=== PATIENT | female | born 1955 | race Caucasian/White ===

== ENCOUNTER 2019-06-06 07:51 | Day surgery (SDC) | payer MEDICARE, SELFPAY ==
[2019-06-03 08:21] VITALS: BMI 31.6
[2019-06-03 14:28] VITALS: BMI 31.6
--- NOTE | 2019-06-06 | PATH_ITS ---
[facility] Accession Number: [id number] . 01 Material submitted: . ankle - MASS LEFT ANKLE . 01 Diagnosis: Soft Tissue, Left Ankle, Excision: Lipoma. MRV 06/09/2019 1314 Local . 01 Electronically signed: . Hortencia Rodrigues MD, Pathologist NPI- [id number] . 01 Gross description: . Received in formalin, labeled mass left ankle, is a piece of pale yellow rubbery adipose tissue (6.5 x 5.0 x 2.0 cm) with a homogeneous unremarkable cut surface. Clinical Nutrition Manager tissue is submitted in cassettes A1-A3. ([id number]) /MRV 06/08/2019 2108 Local . 01 Pathologist provided ICD-10: D17.9 . 01 CPT . 710437 Performed at: [address] [facility] [id number] MD Thai Bell MD Phone: [phone]
[2019-06-06] MEDS: LACTATED RINGERS 1,000 ML 42 ML IV (08:36)
[2019-06-06 08:56] VITALS: BP 131/83; PULSE 86; RESP 16; TEMP 36; O2SAT 95; BMI 32.8
--- NOTE | 2019-06-06 09:36 | PM.PREOP ---
Pre-operative Note Interval Note History & Physical reviewed/Exam performed by Physician: Yes Changes to H&P: No
[2019-06-06] MEDS: CEFAZOLIN 2 GM/100 ML FROZ.PIGGY IV (09:45)
--- NOTE | 2019-06-06 10:04 | SUR.OPER ---
Supine on padded OR bed, head on pillow, arms secured on padded arm boards at <90 degrees abduction, legs uncrossed, safety belt at thigh, tape over blanket over lower legs.
[2019-06-06] MEDS: BUPIVACAINE 0.25% W/ EPI 30 ML VIAL INJ (10:06)
[2019-06-06 10:42] VITALS: BP 121/67; PULSE 78; RESP 20; TEMP 36.5; O2SAT 78
[2019-06-06 10:47] VITALS: BP 116/71; PULSE 78; RESP 15; O2SAT 93
--- NOTE | 2019-06-06 10:51 | PM.PREOP ---
Pre-operative Note Interval Note History & Physical reviewed/Exam performed by Physician: Yes Changes to H&P: No
[2019-06-06 10:52] VITALS: BP 125/76; PULSE 71; RESP 15; O2SAT 96
[2019-06-06 10:56] VITALS: BP 125/76; PULSE 73; RESP 17; O2SAT 99
[2019-06-06] MEDS: ONDANSETRON 4 MG/2 ML INJ IV (11:04)
[2019-06-06] MEDS: OXYCODONE/ACETAMINOPHEN 5/325 TABLET 1 TAB PO (11:04)
--- NOTE | 2019-06-06 11:11 | PM.OP.1 ---
Operative Date/Time/Diagnoses Date of procedure: 06/06/19 Time of procedure: 09:50 Pre-op diagnosis: Mass left ankle r22.42 Post-op diagnosis: same Procedure & Clinicians Procedure: Excision mass left ankle 3.6-4 [place] cpt 48613 Same procedure as scheduled: Yes Indications: Anjali is a 64-year-old female with bilateral ankle pain and mass is left greater than right. She is mass is at her anterior lateral ankle around the area of the sinus tarsi for many years. She has MRIs that are consistent with lipoma. She has chronic pain in the same area. There has been no change in appearance of the masses. She endorses anterior lateral imaging and catching and states they are interfering with her ability to wear shoes and walk. She has been indicated for mass excision on the left. The risks and benefits of the procedure have been discussed with the patient even opportunity to ask questions. The risks of surgery include but are not limited to infection, malunion, nonunion, persistence of pain, need for additional surgery, damage to nerves and blood vessels, posttraumatic arthritis, DVT, PE, cardiopulmonary complications and . The patient expressed a thorough understanding of the risks and benefits of surgery and has elected to proceed. Consent was signed in the office. Surgeon: Laura Tran Click Yes if Unassisted: Yes Anesthesia Type: General and Local Operative Notes Findings: Large subcutaneous mass anterior ankle and foot subcutaneous over the area of the sinus tarsi extended from approximately the extensor digitorum brevis to the distal fibula tip. Approximately 3 x 4 cm Closure Type: primary Specimen(s): other (Mass for pathology approximately 3 x 4 cm yellow fatty tissue) Estimated Blood Loss (mL): 2 Blood products transfused: none Tourniquet time (min): 16 Procedure in detail: Patient was seen in the preoperative area the site of surgery was marked informed consent confirmed. The patient was then brought back to the operating room by the anesthesia team. The patient was positioned supine on the operative table. A ipsilateral hip bump was placed. A well-padded thigh tourniquet was placed. All bony prominences were well padded including the peroneal nerve. General anesthetic was administered. The left lower extremities prepped and draped in the standard sterile fashion. A formal time-out procedure was performed confirming the patient's side and site of surgery and administration of appropriate preoperative antibiotics. All were in agreement. Attention turned to the left lower extremity. Esmarch was used for exsanguination the tourniquet elevated left thigh to 250 mm of mercury and stayed there for 16 minutes. An extensile incision was made directly over the mass extending from the base of the 4th metatarsal to the distal fibula tip. This was to taken through the skin with the scalpel. Tenotomy scissors were then used to carefully free up the skin edges into healthy flaps. New deep knife was used to meticulously dissect the large fatty mass. This appeared fairly uniform consistent with a lipoma. Vascular in entering the mass was cauterized. Mass was freed up on all sides this was did track down to the sinus tarsi and was easily will from the extensor digitorum brevis distally. Once freed up and removed the mass was measured approximately 3 x 4 cm. And sent for pathology. The wound was irrigated. Tourniquet was released and hemostasis was achieved. The tissue was closed with 3 O Vicryl 4 0 Monocryl and 4 0 nylon suture. 20 cc of 0.25% Marcaine with epinephrine were injected for local anesthetic. Xeroform gauze Kerlix and Kris wrap were placed in the patient was placed into the short walking boot. Patient was then woken from anesthesia and taken to the recovery room in good condition. All counts were correct. There no immediate complications from this procedure. Complications: none Post-operative Condition: stable Disposition: PACU Plan for aftercare: Weightbear as tolerated in boot. Keep incision and dressing clean dry and intact until follow-up.
[2019-06-06 11:29] VITALS: BP 141/85; PULSE 78; RESP 16; TEMP 36.1; O2SAT 98
--- NOTE | 2019-06-06 11:37 | SUR.PHASEII ---
Patient discharged in stable condition with family. All belongings returned to patient. All instructions explained to family and patient. V/u.
== END 2019-06-06 11:43 | disposition home or self-care (01) ==
PROVIDERS: PCP Anesthesiology Pain Medicine; Referring Provider Anesthesiology Pain Medicine; Visit Provider Orthopaedic Surgery Foot and Ankle Surgery
PROC: (CPT 64782; principal; 2019-06-06 09:30)
DX: D17.24 Benign lipomatous neoplasm of skin and subcutaneous tissue of left leg (principal)
CPT/HCPCS: 27632; J0690; J1100; J1885; J2250; J2405; J2704; J3010

== ENCOUNTER 2019-07-04 17:38 | Inpatient (IN) | payer MEDICARE, MEDICAID, SELFPAY ==
[2019-07-04] VITALS (12 sets, daily range): BP systolic 114–137; BP diastolic 67–80; PULSE 66–81; RESP 11–22; TEMP 35.6–37; O2SAT 92–100; BMI 31.8
--- NOTE | 2019-07-04 18:55 | PM.PREOP ---
Pre-operative Note Interval Note History & Physical reviewed/Exam performed by Physician: Yes Changes to H&P: No H&P completed within 30 days and has changed as indicated here:: Plan for left foot surgical site irrigation and debridement and application of wound vac
[2019-07-04] MEDS: AMPICILLIN/SULBACTAM 1.5 GM 1.5 GM in SODIUM CHLORIDE 0.9% 100 ML IV (19:07)
[2019-07-04] MEDS: LACTATED RINGERS 1,000 ML 42 ML IV ×2 (20:00→22:03)
[2019-07-04] MEDS: VANCOMYCIN 1,000 MG/200 ML PIGGYBACK 200 MG IV (20:00)
--- NOTE | 2019-07-04 20:02 | PM.HP.1 ---
History of Present Illness History of Present Illness Date Patient Seen: 07/04/19 Time Patient Seen: 20:02 Chief complaint: left ankle infection. Narrative: Left foot lipoma removal on 06/06/19. Subsequently had some superior pole dehiscence treated with local wound care. Today she noted increased pain, drainage and erythema. She was seen in clinic. Direct admit to [facility] for IV abx and I&D. Patient History Medical History Anxiety (Acute) Arthritis (Acute) Breast cancer (Acute) Depression (Acute) Fibromyalgia (Acute) Headache, migraine (Acute) Multiple lipomas (Acute) Surgical History History of mastectomy (Acute) Hx of cholecystectomy (Acute) Hx of tonsillectomy (Acute) Family & Social History Social History: household members spouse Prior Living Arrangements Apartment/Condo Safety & Behavioral: Feels Safe in Current Yes Environment Been Physically Hurt or No Threatened By a Person Suicidal Ideation Description None Suicide Plan Description No Plan Tobacco & Substance use: Smoking Status Never smoker alcohol intake former Substance Use Type does not use Meds Home Medications and Allergies Home Medications Medication Instructions Recorded Confirmed Type loratadine-pseudoephedrine 1 tab PO DAILY 06/03/19 06/03/19 History [Loratadine-D] trazodone 50 mg PO TID 06/03/19 06/06/19 History calcium carbonate [Calcium 500] 1,200 mg PO DAILY 06/06/19 06/06/19 History cholecalciferol (vitamin D3) 1,000 unit PO DAILY 06/06/19 06/06/19 History [Vitamin D3] fluoxetine [Prozac] 10 mg PO DAILY 06/06/19 06/06/19 History hydrocodone-acetaminophen [Sebree] 1 tab PO Q4H PRN #30 tab 06/06/19 Rx tizanidine 2 mg PO BEDTIME 06/06/19 06/06/19 History Allergies Allergy/AdvReac Type Severity Reaction Status Date / Time amoxicillin Allergy Intermediate Hives Verified 06/06/19 08:41 Sulfa (Sulfonamide Allergy Intermediate Hives Verified 06/06/19 08:40 Antibiotics) trimethoprim [From Bactrim] Allergy Intermediate Hives Verified 06/06/19 08:41 adhesive tape AdvReac Mild Verified 06/06/19 08:37 perfume AdvReac Mild Verified 06/06/19 08:40 Review of Systems Review of Systems Narrative: Subjective fevers and chills ROS: Yes All systems reviewed with the patient and are negative except as otherwise documented Exam Vital Signs (past 8 hours): - 07/04/19 19:21 Temperature 98.6 F Pulse Rate 81 Respiratory Rate 16 Blood Pressure 127/78 Pulse Oximetry 96 Narrative Exam Narrative: Dehiscence of left foot lateral surigcal site. Erythema and drainge. No significant fluctance. Erythema to dorusm of foot and anterior ankle. Assessment & Plan Assessment & Plan narrative: Local surgical site wound. Plan for irrigation and debridement, wound vac applacition of left kasandra, IV vanco and unasyn. Randy Time Spent With Patient Time with patient: 15-24 minutes Quality VTE Deep Vein Thrombosis/Pulmonary Embolism Present on Admission: No
--- NOTE | 2019-07-04 20:08 | SUR.HOLD ---
Block start time [2009] . Monitoring initiated and maintained throughout procedure. Oxygen and medications given per anesthesiologist instructions. Patient remained stable throughout procedure, no adverse reactions noted. Block end time [2019].
--- NOTE | 2019-07-04 20:48 | SUR.OPER ---
Supine on padded OR bed, head on pillow, arms secured on padded arm boards at <90 degrees abduction, legs uncrossed, tape across non operative leg, safety belt at thigh.
--- NOTE | 2019-07-04 20:50 | P.PCN_ITS ---
Procedures Date/Time Date of procedure: 07/04/19 Time of procedure: 20:10 General Procedure description: Ultrasound guided popliteal sciatic nerve block for post op pain control after left foot I&D by Dr. Jarrell. Risks and benefits of procedu re discussed with patient. ASA monitoring applied to patient. Oxygen given via nasal cannula. 2 mg Versed and 150 mcg fentanyl given for procedural sedation. Skin site was prepped with chlorhexidine and allowed to fully dry. Sterile gloves, mask, hat and probe cover were used to maintain sterility. 2% lidocaine and 30ga needle was used to make a small skin wheal at needle insertion site. Under ultrasound guidance, a 21ga 100mm Pajunk needle was directed near the division of the sciatic nerve into tibial and peroneal nerve in the popliteal fossa (lateral approach). Patient reported no parasthesias. After negative aspiration, 20 mL 0.5% ropivicaine and 10mg dexamethasone were injected around s ciatic nerve. Patient tolerated procedure well.
--- NOTE | 2019-07-04 21:05 | P.OP_ITS ---
Operative Date/Time/Diagnoses Date of procedure: 07/04/19 Time of procedure: 21:05 Pre-op diagnosis: Surgical site infection left foot Post-op diagnosis: same Procedure & Clinicians Procedure: Irrigation and debridement of skin, soft tissue, muscle (sharp) application of wound vac left foot Same procedure as scheduled: Yes Indications: surgical site infection Surgeon: Randy Jarrell Fence Erector Supervisor: Toni Morel Anesthesia Type: General Operative Notes Findings: necrotic skin, soft tissue Closure Type: non-primary (wound vac application) Specimen(s): none sent (3x swabs) Estimated Blood Loss (mL): 50 Blood products transfused: none Procedure in detail: Patient was met in the preoperative holding area where the site and side of surgery marked by MD. Surgical consent was reviewed and signed. All questions were answered. Patient was then brought back in the operating room where she was placed on the operating table and induced under general anesthesia. The left lower extremity then prepped and draped in normal sterile fashion using Betadine. A surgical time-out was performed verifying the site and side of surgery as well as the name of the patient. The necrotic skin edges were debrided using a #15 Blade. A combination of blunt and sharp debridement were used on the subcutaneous necrotic tissues and muscle down to healthy bleeding border. Three tissue cultures were sent. The soft tissue flaps were undermined using my finger followed by curettage with a curette. 2 L of normal saline was then flushed through the surgical wound. This was followed by Betadine which was allowed to soak in the wound for 2 minutes. The wound was then irrigated thoroughly with another 2 L of normal saline. This point the wound VAC was then applied and had good seal intraoperatively. Wound VAC settings 125 mm of mercury low continuous. Complications: none Post-operative Condition: stable Disposition: PACU Plan for aftercare: Plan for after care includes wound VAC therapy over the weekend plan to transition to wet to dry dressings on Sunday of this coming week. IV antibiotics will include vancomycin and Unasyn, these will be tailored pending intraoperative cultures. Patient to be weight-bearing as tolerated on this extremity to transition for hygiene/commode however she should stay off of this extremity as much as possible for soft tissue rest.
[2019-07-04 22:24] LABS: Hematocrit 32.2 % (36-46); Hemoglobin 10.1 g/dL (12.0-16.0)
[2019-07-04] MEDS: ZOLPIDEM 5 MG TABLET PO (22:34)
[2019-07-05] MEDS: AMPICILLIN/SULBACTAM 1.5 GM 1.5 GM in SODIUM CHLORIDE 0.9% 100 ML IV ×4 (01:47→18:55)
[2019-07-05 04:54] VITALS: BP 113/70; PULSE 75; RESP 18; TEMP 36.5; O2SAT 97
[2019-07-05 06:27] LABS: Hematocrit 32.4 % (36-46); Hemoglobin 10.1 g/dL (12.0-16.0); Mean Corpuscular Hemoglobin 20.1 PG (26-34); Mean Corpuscular Volume 64.7 fL (80-100); Platelet Count 210 X10^3/uL (150-400); Red Blood Cell Count 5.01 X10^6/uL (4.0-5.2); Red Cell Distribution Width 15.7 % (11.6-14.8); White Blood Cell Count 8.6 X10^3/uL (4.5-11.0)
[2019-07-05] MEDS: ONDANSETRON 4 MG/2 ML INJ IV (07:01)
[2019-07-05] MEDS: VANCOMYCIN 1,000 MG/200 ML PIGGYBACK 200 MG IV ×2 (07:37→15:54)
[2019-07-05] MEDS: OXYCODONE/ACETAMINOPHEN 5/325 TABLET 1 TAB PO (08:19)
--- NOTE | 2019-07-05 08:28 | PC.NURSE ---
Pt denies pain to her LLE. She is experiencing some numbness, unable to feel light touch. She is is able to move left great toe only. Pt has c/o 5/10 pain to her head stating I have year round allergies and get terrible sinus headaches. Pt has been provided 1, 5/325mg tablet of Percocet for pain relief. Wound vac is draining serosanguinous drainage with no leak detected at 125mmHg. Dressing is CDI.
[2019-07-05 09:00] VITALS: BP 122/79; PULSE 88; RESP 18; TEMP 36.7; O2SAT 95
--- NOTE | 2019-07-05 10:19 | PT.IIE ---
Surgery Performed Operation Date: 07/04/19 19:50 Actual Procedures p Irrigation and debridement foot, application wound vac(Left) - Randy Jarrell MD Surgical History (Last Reviewed 07/04/19 @ 20:03 by Randy Jarrell MD) History of mastectomy (Acute) Hx of cholecystectomy (Acute) Hx of tonsillectomy (Acute) Medical History (Last Reviewed 07/04/19 @ 20:03 by Randy Jarrell MD) Anxiety (Acute) Arthritis (Acute) Breast cancer (Acute) Depression (Acute) Fibromyalgia (Acute) Headache, migraine (Acute) Multiple lipomas (Acute) Physical Therapy Inpatient Evaluation/Re-Eval M1 PT/OT-IP Prior Functional Status Start: 07/05/19 12:25 Freq: NEEDED Status: Active Protocol: Document 07/05/19 10:19 AB (Rec: 07/05/19 13:06 AB [id number]) Medical Review Prior Functional Status Medical History Reviewed Yes Communication able to make needs known Mobility and Gait pt stated that she is independent with all mobilities and ambulation without AD Social History Household Members spouse,none Living Arrangements Apartment/Condo Number of Floors (Floors) One Floor Number of Stairs To Enter/Railing? 17 steps with bilateral rail to get to her apartment Home Environment Standard Height Toilet,Tub/ Shower Doors Additional Social History Comment pt stated that she is by mostly by herself and spouse only at home on fridays. stated that she cannot use a SPC or crutches due to RUE pinched nerve M2 PT-IP Current Condition Start: 07/05/19 12:25 Freq: NEEDED Status: Active Protocol: Document 07/05/19 10:19 AB (Rec: 07/05/19 13:06 AB [id number]) Physical Therapy Current Condition Current Condition Evaluation Date 07/05/19 Treatment Diagnosis L foot infection s/p I&D; difficulty in walking Onset Date 07/04/2019 Precautions Other Precautions L foot wound vac Weight Bearing Status Allowed Weight Bearing Amount (enter % Per 's operative note or #) (%) dated 07/04/2019 for L foot: Patient to be weight-bearing as tolerated on this extremity to transition for hygiene/ commode however she should stay off of this extremity as much as possible for soft tissue rest. Nurse informed PT 07/05/[address] Jarrell that pt is only TTWB on LLE and to be off the foot as much as possible for soft tissue rest. M3 PT-IP Subjective Start: 07/05/19 12:25 Freq: NEEDED Status: Active Protocol: Document 07/05/19 10:19 AB (Rec: 07/05/19 13:06 AB [id number]) Subjective Physical Therapy Visit Type Type Initial Evaluation Visit Start Time 10:19 Visit Stop Time 11:01 Total Visit Minutes 42 Number of ROOM WORKER Visits 0 Physical Therapy Visit Comments Patient Comments pt agreeable to do PT but is very anxious Therapy Pain Assessment Pain When Pain Assessed At Rest Pain Present Pain Present Denied Pain M4 PT-IP Mobility and Gait Start: 07/05/19 12:25 Freq: NEEDED Status: Active Protocol: Document 07/05/19 10:19 AB (Rec: 07/05/19 13:06 AB [id number]) PT-Bed Mobility Assessment Supine to Sit Supine to Sit Standby Assistance Sit to Supine Sit to Supine Standby Assistance Scooting Scooting to Edge of Bed Standby Assistance PT-Transfer Assessment Sit to and From Stand Sit to and from Stand Contact Guard Assistance,1 Person Assistance,Use of Upper Extremities Equipment Transfer Assistive Device Gait Belt,Front Wheeled Walker Orthotic/Prosthetic Devices or Brace: No Transfers Transfer Destination Bedside Commode Transfer Technique using FWW Transfer Ability Level of Assist Contact Guard Assistance,1 Person Assistance,Use of Upper Extremities Comments Mobility Comments pt completed supine to sit SBA . educated on TTWB on LLE and if unable to maintain to do NWB LLE. pt completed sit to stand cues for techniques CGA and completed step transfer using FWW CGA. pt stated that she is unable to feel her toes and unable to do TTWB appropriate and instructed to do NWB on LLE and maintained during transfers using FWW. completed toileting and completed sit to stand from the bedside commode CGA and transferred to the bed using FWW CGA. completed sit to supine SBA. positioned in bed . call light and table placed within reach. pt educated on equipement needs: w/c, FWW and pt stated that she can ask her daughter to borrow a w/c but would like to get a FWW. requested MD order for FWW. Gait Assessment Gait Gait Assistance Required: Contact Guard Assist,1 Person Assist Distance (Feet) 2 Able to Maintain Weight Bearing Status Yes During Gait Assistive Devices Assistive Device Gait Belt,Front Wheeled Walker Orthotic/Prosthetic Devices or Brace: No Factors Limiting Gait Function Factors Limiting Gait Function Decreased Activity Tolerance, Decreased Sensation,Decreased Strength,Limited Range of Motion,Pain,Poor Balance,Poor Safety Awareness Comments Gait Comments pt able to take steps during transfers NWB on LLE using FWW . cued on how to use FWW and to maintain NWB on LLE PT-Balance Assessment Sitting Balance and Reactions Static Sitting Balance Ability Good Dynamic Sitting Balance Ability Good Standing Balance and Reactions Static Standing Balance Ability Fair Dynamic Standing Balance Ability Fair Device Used FWW M5 PT-IP Objective Assessments Start: 07/05/19 12:25 Freq: NEEDED Status: Active Protocol: Document 07/05/19 10:19 AB (Rec: 07/05/19 13:06 AB [id number]) Orientation Orientation/Cognition Level of Alertness Alert Orientation Name,Place,Situation Safety Awareness Decreased Safety Awareness Gross Range of Motion Lower Extremity ROM Assessment Within Functional Limits Strength Lower Extremity Strength Assessment Left Impaired Knee 4-/5 Ankle 2+/5 c/o numbness on L foot affecting movement Sensation Assessment Sensation Gross Sensation Left LE Impaired Light Touch Impaired Proprioception (Position) Impaired Sensation Description Numbness M6 PT-IP Treatment Start: 07/05/19 12:25 Freq: NEEDED Status: Active Protocol: Document 07/05/19 10:19 AB (Rec: 07/05/19 13:06 AB [id number]) Physical Therapy Treatment Exercises Exercises Gluteal Sets,Quad Sets,Heel Slides Education Education Provided Precautions,Weight Bearing Status,Safety M7 PT-IP Assessment and Plan Start: 07/05/19 12:25 Freq: NEEDED Status: Active Protocol: Document 07/05/19 10:19 AB (Rec: 07/05/19 13:06 AB [id number]) PT Summary Assessment and Plan Potential Rehabilitation Potential Fair Status of Condition at Evaluation Evolving Summary Impairments Pain,ROM,Strength,Balance, Sensation,Cognition,Bed Mobility,Transfers,Gait, Activity Tolerance Assessment Summary pt lives mostly alone as spouse only comes home on fridays. pt has 17 steps to get into the house and currently is TTWB on LLE. informed pt regardng needing a w/c and a FWW. received FWW order from the doctor will dispense upon d/c. informed pt regarding assistance needed at home and to get into the house. pt gets anxious easily and requires cues for safety. will need further assessment for safe d/c plan but may need to to go SNF at this time . Goals Bed Mobility Goal Independent Transfer Goal Independent,Front Wheeled Walker Gait Goal Standby Assistance,Front Wheel Walker Gait Distance 20 Days to Meet Goals 5 Frequency of Treatment Frequency Of Treatment Once a Day Treatment Plan Physical Therapy Treatment Plan Bed Mobility Training,Transfer Training,Gait Training, Therapeutic Exercise,Balance Retraining,Post Op Education, Discharge Planning,Hot or Cold Pack,Neuromuscular Re-ed, Coordination Retraining,Manual Therapy Recommendations To Nursing Amount of Assist Needed 1 Person Assist Discharge Recommendations PT Discharge Recommendations Home with 13/11 Assist,Home Health,SNF Rehab Equipment Needed for Home Before FWW; w/c Discharge Transportation Needs at Discharge Private Vehicle,Wheelchair/ Cabulance
--- NOTE | 2019-07-05 12:05 | PM.PNPO.1 ---
Subjective Subjective Date Patient Seen: 07/05/19 Time Patient Seen: 10:00 Interval history: POD#1 s/p Irrigation and debridement of skin, soft tissue, muscle (sharp), application of wound vac left foot w Dr. Jarrell. Per patient, no pain in R foot. Complains of feeling constipated, hx of diverticulitis. Voiding without difficulty or assistance. Has not mobilized with PT. Denies fever, chills, dry cough, shortness of breath, chest pain, nausea, vomiting. Exam Vital Signs (past 8 hours): - 07/05/19 04:54 07/05/19 09:00 Temperature 97.7 F 98.0 F Pulse Rate 75 88 Respiratory Rate 18 18 Blood Pressure 113/70 122/79 Pulse Oximetry 97 95 Oxygen Delivery Method Room Air Oxygen Flow Rate 0 Narrative Exam Narrative: 64 yo F is laying comfortably in bed, in no apparent distress. A&Ox3. L foot - wound vac in place and functioning, SCDs in place. Swelling and erythema has greatly improved since pre-op exam. Able to actively dorsiflex/plantar flex BL. Calves warm, soft, compressible, NTTP. Dorsalis pedis 2+ BL. Objective Labs Result Diagrams: 07/05/19 06:15 Labs: Laboratory Results - last 24 hr 07/04/19 07/05/19 22:15 06:15 WBC 8.6 RBC 5.01 Hgb 10.1 L 10.1 L Hct 32.2 L 32.4 L MCV 64.7 L MCH 20.1 L MCHC 31.0 RDW 15.7 H Plt Count 210 Assessment & Plan Post-op Postoperative Procedures: Procedures Operation Date: 07/04/19 19:50 Actual Procedures Side Surgeon p Irrigation and debridement foot, application wound vac Left Randy Jarrell MD Postoperative day: 1 Postoperative status: doing well Postoperative plan: routine post-op care Postoperative plan narrative: Wound vac will remain in place until Sunday. No dressing changes until then. Transition to wet-to-dry dressings on Sunday. Continue IV antibiotics (vancomycin and unasyn) - may change abx pending intraop cultures Patient to be weight-bearing as tolerated on this extremity to transition for hygiene/commode however she should stay off of this extremity as much as possible for soft tissue rest. Time Spent With Patient Time with patient: less than 15 minutes Quality VTE Deep Vein Thrombosis/Pulmonary Embolism Present on Admission: No
--- NOTE | 2019-07-05 12:53 | CM.DANOTE ---
DCP Assessment: EMR reviewed: Patient is a 64 yr old female who was admitted for I&D of Lt Ankle infection preformed by Dr. Jarrell. PCP is Dr. Pennington. CM/RN met with patient at the bedside and explained role. Patient was alert and oriented x3 at time of visit. Patient is Independent and drives at baseline. Patient currently lives in a second floor apartment with 17 steps to get into the home. Patient is concerned about getting up her stairs to get into her home at D/C. Patient plans on having her 17 yr old granddaughter come and stay with her at d/c to help her get around. During CM/RN meting patient requested HH services when she D/C home. Cm/Rn gave patient a medicare approved HH list and patient chose [facility]. CM/Rn faxed clinicals for there review. Patient is on a wound vac currently and according to EMR will have it until Sunday when it will be removed. I: Medicare and self pay Plan: D/C home with family and HH services. Need F2F signed and faxed to [facility]. Khloe Sanchez RN Discharge Planning/Care Management Advanced directive, confirm from FAMILY Start: 07/04/19 19:20 Freq: Q24H Status: Active Protocol: Document 07/04/19 19:20 SL (Rec: 07/04/19 20:32 SL [id number]) Advance Directive, confirm on record Time 19:30 Person contacted patient Copy received No CM Discharge Assessment Start: 07/05/19 12:42 Freq: Status: Active Protocol: Document 07/05/19 12:42 HS (Rec: 07/05/19 12:53 HS [id number]) Discharge Planning Assessment Assigned Mid Level Project Manager Khloe Sanchez RN DPOA/Assigned Designee Name Cristela (daughter) Advance Directives? Yes Advance Directives on File No History Provided By Patient,Medical Record Has Patient been admitted in last 30 No days? Prior Living Arrangements Apartment/Condo Household Members spouse Type of transporation used prior to Drives own vehicle admit Independent with ADL's Yes Is patient alert and oriented? Yes DME Already Rented / Owned FWW / Walker,Cane Discharge Plan Home with Home Health Referrals Initiated Home Health If patient plan is home with home health Yes : Has signed face to face form been completed? Medicare Choice List Provided Yes SNF/HH Preference [facility] Contact Name/ Has Agency SNF been contacted Yes Whiteboard Updated in Patient Room with Yes name and ext. # of Mid Level Project Manager Review Status In Process Next Review Type Continued Stay Review
[2019-07-05] MEDS: LORATADINE 10 MG TABLET PO (13:25)
[2019-07-05] MEDS: OXYCODONE IR 5 MG TABLET PO ×2 (13:35→18:55)
[2019-07-05 14:00] VITALS: BP 119/74; PULSE 81; RESP 18; TEMP 36.8; O2SAT 96
[2019-07-05 14:19] LABS: Estimated Glomerular Filt Rate > 60.0 mL/min (>60)
[2019-07-05 15:20] VITALS: BP 132/82; PULSE 88; RESP 18; TEMP 36.9; O2SAT 97
[2019-07-05 19:50] VITALS: BP 134/73; PULSE 82; RESP 17; TEMP 36.9; O2SAT 93
[2019-07-05] MEDS: TIZANIDINE 4 MG TABLET 2 MG PO (21:27)
[2019-07-05] MEDS: TRAZODONE 50 MG TABLET PO (21:27)
[2019-07-05 23:05] VITALS: BP 98/60; PULSE 60; RESP 18; TEMP 36.9; O2SAT 94
[2019-07-06] MEDS: AMPICILLIN/SULBACTAM 1.5 GM 1.5 GM in SODIUM CHLORIDE 0.9% 100 ML IV ×3 (00:34→13:26)
[2019-07-06 03:13] VITALS: BP 135/76; PULSE 69; RESP 18; TEMP 36.7; O2SAT 97
[2019-07-06] MEDS: OXYCODONE IR 5 MG TABLET PO ×4 (03:17→20:56)
[2019-07-06 07:08] LABS: Vancomycin Trough 6.9 ug/mL (10-20)
[2019-07-06] MEDS: VANCOMYCIN 1,000 MG/200 ML PIGGYBACK 200 MG IV (07:24)
[2019-07-06 07:50] VITALS: BP 125/62; PULSE 60; RESP 18; TEMP 36.2; O2SAT 96
[2019-07-06] MEDS: ONDANSETRON 8 MG TABLET PO (09:11)
--- NOTE | 2019-07-06 09:37 | PC.NURSE ---
Addendum entered by Zach Moore R.N. 07/06/19 14:35: zofran of good effect, Pt taking lunch. IV abx's continue. IVF's continue. Original Note: Pt a&o offers c/o of some nausea,Zofran ordered and given. Wound vac intact and functional. site intact. IV patent. See Nursing assessment. Dr. Jarrell in to see Pt. see orders.
[2019-07-06 12:00] VITALS: BP 143/83; PULSE 64; RESP 20; TEMP 36.3; O2SAT 98
[2019-07-06] MEDS: LACTATED RINGERS 1,000 ML 42 ML IV (13:27)
--- NOTE | 2019-07-06 15:02 | PT.IPTN ---
Current Diagnoses Infection following a procedure, deep incisional surgical site, initial encounter (07/04/19) Surgery Performed Operation Date: 07/04/19 19:50 Actual Procedures p Irrigation and debridement foot, application wound vac(Left) - Randy Jarrell MD Physical Therapy Treatment Note M2 PT-IP Current Condition Start: 07/05/19 12:25 Freq: NEEDED Status: Active Protocol: Document 07/05/19 10:19 AB (Rec: 07/05/19 13:06 AB [id number]) Physical Therapy Current Condition Current Condition Evaluation Date 07/05/19 Treatment Diagnosis L foot infection s/p I&D; difficulty in walking Onset Date 07/04/2019 Precautions Other Precautions L foot wound vac Weight Bearing Status Allowed Weight Bearing Amount (enter % Per 's operative note or #) (%) dated 07/04/2019 for L foot: Patient to be weight-bearing as tolerated on this extremity to transition for hygiene/ commode however she should stay off of this extremity as much as possible for soft tissue rest. Nurse informed PT 07/05/[address] Jarrell that pt is only TTWB on LLE and to be off the foot as much as possible for soft tissue rest. M3 PT-IP Subjective Start: 07/05/19 12:25 Freq: NEEDED Status: Active Protocol: Document 07/06/19 15:02 CLB (Rec: 07/06/19 15:54 CLB [id number]) Subjective Physical Therapy Visit Type Type Treatment Note Visit Start Time 15:02 Visit Stop Time 15:25 Total Visit Minutes 23 Number of HOP WORKER Visits 1 Physical Therapy Visit Comments Patient Comments pt hesitant but agreeable to use BSC then transfer to chair . Therapy Pain Assessment Pain When Pain Assessed At Rest Pain Present Pain Present Denied Pain M4 PT-IP Mobility and Gait Start: 07/05/19 12:25 Freq: NEEDED Status: Active Protocol: Document 07/06/19 15:02 CLB (Rec: 07/06/19 15:54 CLB [id number]) PT-Bed Mobility Assessment Supine to Sit Supine to Sit Standby Assistance Scooting Scooting to Edge of Bed Standby Assistance PT-Transfer Assessment Sit to and From Stand Sit to and from Stand Standby Assistance,Contact Guard Assistance,1 Person Assistance,Use of Upper Extremities Equipment Transfer Assistive Device Gait Belt,Front Wheeled Walker Orthotic/Prosthetic Devices or Brace: No Transfers Transfer Destination Bedside Commode Transfer Technique using FWW Transfer Ability Level of Assist Standby Assistance,Contact Guard Assistance,1 Person Assistance,Use of Upper Extremities Comments Mobility Comments Pt in bed upon arrival, pt able to get to EOB SBA and stood requiring CGA. Pt then transferred w/TTWB with use of UEs to BSC and assist with lines. Pt able to follow TTWB during transfer. Pt then transferred to chair. Pt left in chair with all needs within reach and LLE elevated on pillow. CROWN BUFFER present in room. Gait Assessment Gait Gait Assistance Required: Standby Assistance,Contact Guard Assist Distance (Feet) 2 Able to Maintain Weight Bearing Status Yes During Gait Assistive Devices Assistive Device Gait Belt,Front Wheeled Walker Orthotic/Prosthetic Devices or Brace: No Factors Limiting Gait Function Factors Limiting Gait Function Decreased Activity Tolerance, Decreased Sensation,Decreased Strength,Limited Range of Motion,Pain,Poor Balance,Poor Safety Awareness Comments Gait Comments Pt improving with use of FWW and follows TTWB status. M5 PT-IP Objective Assessments Start: 07/05/19 12:25 Freq: NEEDED Status: Active Protocol: Document 07/05/19 10:19 AB (Rec: 07/05/19 13:06 AB [id number]) Orientation Orientation/Cognition Level of Alertness Alert Orientation Name,Place,Situation Safety Awareness Decreased Safety Awareness Gross Range of Motion Lower Extremity ROM Assessment Within Functional Limits Strength Lower Extremity Strength Assessment Left Impaired Knee 4-/5 Ankle 2+/5 c/o numbness on L foot affecting movement Sensation Assessment Sensation Gross Sensation Left LE Impaired Light Touch Impaired Proprioception (Position) Impaired Sensation Description Numbness M6 PT-IP Treatment Start: 07/05/19 12:25 Freq: NEEDED Status: Active Protocol: Document 07/05/19 10:19 AB (Rec: 07/05/19 13:06 AB [id number]) Physical Therapy Treatment Exercises Exercises Gluteal Sets,Quad Sets,Heel Slides Education Education Provided Precautions,Weight Bearing Status,Safety M7 PT-IP Assessment and Plan Start: 07/05/19 12:25 Freq: NEEDED Status: Active Protocol: Document 07/06/19 15:02 CLB (Rec: 07/06/19 15:54 CLB [id number]) PT Summary Assessment and Plan Potential Rehabilitation Potential Fair Status of Condition at Evaluation Evolving Summary Impairments Pain,ROM,Strength,Balance, Sensation,Cognition,Bed Mobility,Transfers,Gait, Activity Tolerance Assessment Summary Pt improving with transfers with FWW and is able to follow TTWB status. Pt states her sister may be able to come assist her at home. Pt has 17 steps to get into house. Will continue to assess progress but pt may require SNF before d/c home. Goals Bed Mobility Goal Independent Transfer Goal Independent,Front Wheeled Walker Gait Goal Standby Assistance,Front Wheel Walker Gait Distance 20 Days to Meet Goals 5 Frequency of Treatment Frequency Of Treatment Once a Day Treatment Plan Physical Therapy Treatment Plan Bed Mobility Training,Transfer Training,Gait Training, Therapeutic Exercise,Balance Retraining,Post Op Education, Discharge Planning,Hot or Cold Pack,Neuromuscular Re-ed, Coordination Retraining,Manual Therapy Recommendations To Nursing Amount of Assist Needed 1 Person Assist Discharge Recommendations PT Discharge Recommendations Home with 24/ Assist,Home Health,SNF Rehab Equipment Needed for Home Before FWW; w/c Discharge Transportation Needs at Discharge Private Vehicle,Wheelchair/ Cabulance
[2019-07-06 15:20] VITALS: BP 122/62; PULSE 76; RESP 18; TEMP 37; O2SAT 97
[2019-07-06] MEDS: TIZANIDINE 4 MG TABLET 2 MG PO (15:56)
--- NOTE | 2019-07-06 17:40 | PM.PN.1 ---
Subjective Subjective Date Patient Seen: 07/06/19 Time Patient Seen: 17:41 Interval history: POD#2 s/p Irrigation and debridement of skin, soft tissue, muscle (sharp), application of wound vac left foot w Dr. Jarrell. Per patient, no pain in L foot. Voiding without difficulty or assistance. Has not mobilized with PT. Denies fever, chills, dry cough, shortness of breath, chest pain, nausea, vomiting. Exam Vital Signs (past 8 hours): - 07/06/19 12:00 07/06/19 15:20 Temperature 97.4 F L 98.6 F Pulse Rate 64 76 Respiratory Rate 20 18 Blood Pressure 143/83 H 122/62 Pulse Oximetry 98 97 Oxygen Delivery Method Room Air Oxygen Flow Rate 0 Narrative Exam Narrative: Decreasing erythema around the wound site. Wound vac holding suction. NV intact. Objective Labs Result Diagrams: 07/05/19 06:15 07/05/19 13:53 Labs: Laboratory Results - last 24 hr 07/06/19 06:30 Vancomycin Trough 6.9 L Assessment & Plan Assessment & Plan narrative: Plan for wound vac takedown on sunday and transition to wet-to-dry dressing changes. Transition to oral abx sunday for group B strep. WBAT LLE, limit ambulation for soft-tissue rest. Time Spent With Patient Time with patient: less than 15 minutes Quality VTE Deep Vein Thrombosis/Pulmonary Embolism Present on Admission: No
[2019-07-06] MEDS: PSYLLIUM HUSK 1 PACKET PO (17:55)
[2019-07-06] MEDS: CEFTRIAXONE 1 GM/50 ML FROZ.PIGGY IV (19:17)
[2019-07-06 19:40] VITALS: BP 101/58; PULSE 63; RESP 16; TEMP 36.6; O2SAT 98
[2019-07-06] MEDS: TRAZODONE 50 MG TABLET PO (20:56)
[2019-07-06 23:10] VITALS: BP 100/56; PULSE 63; RESP 19; TEMP 36.5; O2SAT 96
[2019-07-07] MEDS: ACETAMINOPHEN 325 MG TABLET 650 MG PO ×2 (00:16→06:03)
[2019-07-07] MEDS: OXYCODONE IR 5 MG TABLET PO ×4 (00:17→14:15)
[2019-07-07 04:30] VITALS: BP 116/67; PULSE 61; RESP 18; TEMP 36.6; O2SAT 95
[2019-07-07 06:27] LABS: Estimated Glomerular Filt Rate > 60.0 mL/min (>60)
--- NOTE | 2019-07-07 08:23 | PC.NURSE ---
Dayshift Note: Pt checked on and assessed. Pt reports minimal pain in LLE. Discussed mobility restrictions, plans for wound care and criteria for possible d/c today with ortho PA at bedside. Pt A and O x3. Pain well-managed at this time. RA, denies SOB. Tolerating diet. Will continue to monitor, call light in reach. Will notify MD with changes.
--- NOTE | 2019-07-07 08:54 | P.PN_ITS ---
Subjective Subjective Date Patient Seen: 07/07/19 Time Patient Seen: 08:54 Interval history: Patient is POD #3 s/p I&D of right foot. Pain was severe overnight but improves with medication. Patient has been OOB to commode and to chair. Denies any chest pain or shortness of breath. Exam Vital Signs (past 8 hours): - 07/07/19 04:30 Temperature 97.9 F Pulse Rate 61 Respiratory Rate 18 Blood Pressure 116/67 Pulse Oximetry 95 Oxygen Delivery Method Room Air Oxygen Flow Rate 0 Narrative Exam Narrative: 64 year old female resting in bed. Alert and oriented. Wound vac in place and functioning with serosangenous drainage in reservoir. Patient is neurovascularly intact in the extremity. Objective Labs Result Diagrams: 07/05/19 06:15 07/07/19 05:50 Labs: Laboratory Results - last 24 hr 07/07/19 05:50 Creatinine 0.80 Estimated GFR > 60.0 Assessment & Plan Assessment & Plan narrative: Patient doing well postoperatively. Will transition her today to oral Amoxicillin for the next 2 weeks. Continue to weight bear as tolerated for necessary transfers and toilet privileges. She should otherwise rest the extremity. Discnontinued wound vac today with transition to wet to dry dressing changes. S he will need daily wet to dry dressing changes upon discharge either with or wound care clinic. Possible discharge to home later today. Quality VTE Deep Vein Thrombosis/Pulmonary Embolism Present on Admission: No
[2019-07-07 09:00] VITALS: BP 124/24; PULSE 73; RESP 18; TEMP 36.4; O2SAT 96
[2019-07-07] MEDS: PSYLLIUM HUSK 1 PACKET PO (09:41)
[2019-07-07] MEDS: TIZANIDINE 4 MG TABLET 2 MG PO (09:49)
--- NOTE | 2019-07-07 11:29 | PT-IP ANOTE ---
Spoke with pt informing her that I spoke with Dr Jarrell and that he stated she is WBAT. Per Dr Jarrell pt is able to ambulate as necessary and would be able perform stair training with therapy so she would be able to get up her stairs to enter her home at discharge. Pt stated she would figure it out once she got home and that she would not trial stairs with therapy and then asked this PERIANESTHESIA RN to leave her room. Pt was dispensed a FWW per Dr Jarrell's order.
--- NOTE | 2019-07-07 12:03 | CM.DPC ---
DCP/continued: Received notification from Orthopedic provider that patient medically stable to d/c today. Wound vac will be taken off and HH will be required for dressing changes. No HH for therapy recommended. FWW ordered for home use. Met with patient explained role. Patient alert and oriented at time of visit. Patient aware that she is discharged today but she would like non-urgent ambulance arranged to get her home. Notified patient that provider has not asked for non-urgent ambulance but if she would like [employer]EMENT [employer]AC[employer] can check into private pay cabulance. Patient reports that she has too many stairs to manage on her own? Spoke with SHARIFA/Kelli and she reports that Dr. Jarrell does not feel patient needs non urgent ambulance, he also mentions to MANAGEMENT SPECIALIST that patient can bear weight on left foot. Patient requesting [employer] obtain non-urgent BLS transport despite criteria. Patient frustrated and appeared angry when LABORER CEMENT GUN PLACING indicated that patient could pay privately for ambulance or cabulance. Notified patient that FWW ordered for home use and HH set up through [facility] as discussed with previous CM steam generating powerplant mechanic. Asked BE/Martha to coordinate and confirm arrangements. F2F signed by provider. P: Home today with [facility]. Patient provided with brochure for agency and FWW will be delivered prior to d/c. Patient refusing to discuss transport other than non-urgent BLS. Offered to assist with other modes of transport and patient declined. RN, MANAGEMENT SPECIALIST, and charger notified. CASSY Gupta
[2019-07-07] MEDS: ONDANSETRON 4 MG/2 ML INJ IV (13:14)
[2019-07-07] MEDS: cephALEXin 250 MG CAPSULE 500 MG PO (14:14)
[2019-07-07] MEDS: LORATADINE 10 MG TABLET PO (14:15)
--- NOTE | 2019-07-07 15:49 | PC.NURSE ---
Discharge Note: Pt discharged from Acute Care to home via private vehicle with pt's daughter. Pt given teaching re follow-up, medications, fall safety, mobility, wound care and home health follow-up. Discussed pain management, and timing of medications in hospital. Pt discharged home without incident. IV removed prior to discharge.
== END 2019-07-07 15:40 | disposition home health service (06) | DRG 857 ==
LOC: ICU 17:40 → AC 17:55
PROVIDERS: Admitting Provider Orthopaedic Surgery Adult Reconstructive Orthopaedic Surgery; PCP Nurse Practitioner Family; Referring Provider Orthopaedic Surgery Adult Reconstructive Orthopaedic Surgery; Visit Provider Orthopaedic Surgery Adult Reconstructive Orthopaedic Surgery
PROC: 0KBW0ZZ Excision of Left Foot Muscle, Open Approach (ICD-10-PCS; principal; 2019-07-04 19:50)
DX: T81.42XA Infection following a procedure, deep incisional surgical site, initial encounter (principal); I96 Gangrene, not elsewhere classified; B95.2 Enterococcus as the cause of diseases classified elsewhere; F41.9 Anxiety disorder, unspecified; F32.9 Major depressive disorder, single episode, unspecified; M79.7 Fibromyalgia; Z85.3 Personal history of malignant neoplasm of breast
CPT/HCPCS: 36415; 64450; 80202; 82565; 85014; 85018; 85027; 87070; 87075; 87077; 87147; 87205; 97162; 97530; J0295; J1100; J2250; J2405; J2704; J3010; Q0162